=== PATIENT | male | born 1980 | race Asian ===

== ENCOUNTER 2021-07-23 10:25 | Emergency (ER) | payer BC, OTHER ==
[~2021-07-23] VITALS: Ht 175.3 cm; Wt 95.3 kg
[2021-07-23 10:48] VITALS: BP 122/74
[2021-07-23 10:53] VITALS: BP 122/74
--- NOTE | 2021-07-23 10:53 | NUR ---
c/o congested, AVILA, cough x 3 days, no sob, no cp, no n/v/d, pt in er tent 2
[2021-07-23] MEDS ORDERED: ALBU0.0912 IH (12:05)
[2021-07-23] MEDS ORDERED: ROB PO (12:05)
--- NOTE | 2021-07-23 12:21 | NUR ---
Patient discharged with v/s stable. Written and verbal after care instructions given and explained. Patient alert, oriented and verbalized understanding of instructions. Ambulatory with steady gait. All questions addressed prior to discharge. ID band removed. Patient advised to follow up with PMD. Rx of Albuterol and Robitussin given. Patient educated on indication of medication including possible reaction and side effects. Opportunity to ask questions provided and answered.
== END 2021-07-23 12:21 | disposition home or self-care (01) ==
LOC: EDBD 10:25 → MED 10:25
DX: U07.1 COVID-19 (principal); J06.9 Acute upper respiratory infection, unspecified; Z79.899 Other long term (current) drug therapy
CPT/HCPCS: 71045; 99284

== ENCOUNTER 2021-07-29 10:39 | Inpatient (IN) | payer OTHER, MEDICAID, SELFPAY ==
[~2021-07-29] VITALS: Ht 175.3 cm; Wt 95.3 kg
[~2021-07-29 10:39] MED LIST: ALBU0.0912 IH; ROB PO
[2021-07-29 11:23] VITALS: BP 122/76
--- NOTE | 2021-07-29 11:30 | NUR ---
PT TAKEN TO BED 3.
[2021-07-29] MEDS ORDERED: DEXAMETHASONE 10 MG/ML VIAL IVP ONE (11:55)
--- NOTE | 2021-07-29 12:05 | NUR ---
41/M presents to ED with c/o covid symptoms for one week. Patient states he was diagnosed with covid here on 07/23 and has continued to have worsening symptoms. Patient states he feels it is hard to take a full breath, states fatigue and reports 3 days of diarrhea. Denies chest pain, nausea, vomiting or urinary symptoms. Patient presents tachypneic and febrile with a temp of 103.0, O2 saturation 93% on 6L nasal canula. Patient states he has been eating and drinking normally at home but has had a difficult time sleeping. Dr. Earl aware of patient.
--- NOTE | 2021-07-29 12:20 | NUR ---
JAMAAL SWAB COLLECTED AND HANDED TO LIBRARY PAGE.
--- NOTE | 2021-07-29 12:20 | NUR ---
20G IV ESTABLISHED TO LEFT AC. LABS DRAWN AND HANDED TO MUCK MINER BLASTING.
[2021-07-29 12:41] LABS: BASOPHILS % (AUTO) 0.3 % (0.0-2.0); HEMOGLOBIN 14.8 g/dL (12.0-18.0); LYMPHOCYTES # (AUTO) 0.5 K/uL (2.0-11.5); MEAN CORPUSCULAR HEMOGLOBIN 33 pg (27-31); MEAN CORPUSCULAR HGB CONC 35 g/dL (33-37); MEAN CORPUSCULAR VOLUME 95.9 fL (80-94); MONOCYTES # (AUTO) 0.2 K/uL (0.8-1.0); MONOCYTES % (AUTO) 2.7 % (1.7-9.3); NEUTROPHILS # (AUTO) 8.4 K/uL (1.8-7.7); PLATELET COUNT (AUTO) 181 K/uL (140-450); RED BLOOD CELL COUNT(AUTO) 4.49 MIL/uL (4.20-6.10); RED CELL DISTRIBUTION WIDTH 14.2 % (11.6-13.7); WHITE BLOOD COUNT (AUTO) 9.2 K/uL (4.8-10.8)
[2021-07-29] MEDS ORDERED: ACETAMINOPHEN EXTRA STRENGTH 500 MG TAB PO ONE (13:30)
[2021-07-29] MEDS ORDERED: ACETAMINOPHEN EXTRA STRENGTH 500 MG TAB ONE (13:32)
[2021-07-29 13:44] LABS: LYMPHOCYTES % (AUTO) 5.6 % (20.5-51.1); NEUTROPHILS % (AUTO) 91.4 % (42.2-75.2)
[2021-07-29 13:46] LABS: ALBUMIN 2.9 g/dL (3.4-5.0); ANION GAP 16.5 (8-16); CARBON DIOXIDE 23.7 mmol/L (21-32); CREATININE 1.4 mg/dL (0.6-1.3); POTASSIUM 3.2 mmol/L (3.5-5.1); TOTAL BILIRUBIN 0.6 mg/dL (0.0-1.0)
[2021-07-29] MEDS ORDERED: cefTRIAXone 2,000 MG in DEXTROSE 5% 100 ML IV ONE (14:25)
[2021-07-29] MEDS ORDERED: cefTRIAXone 2,000 MG VIAL ONE (14:50)
--- NOTE | 2021-07-29 15:00 | NUR ---
PATIENT APPEARS TO BE RESTING WITH EYES OPEN, ON BEDSIDE INSTRUCTIONAL MATERIALS DIRECTOR. ALL NEEDS MET AT THIS TIME.
[2021-07-29] MEDS ORDERED: POTASSIUM CHLORIDE 10 MEQ TABER PO PRN (15:50)
[2021-07-29] MEDS ORDERED: ACETAMINOPHEN 325 MG TAB PO PRN (15:50)
[2021-07-29] MEDS ORDERED: MAGNESIUM OXIDE 400 MG TAB PO PRN (15:50)
[2021-07-29] MEDS ORDERED: ONDANSETRON 4 MG/2 ML VIAL IVP PRN (15:50)
[2021-07-29] MEDS ORDERED: HYDROcodone/APAP 5/325 MG 1 TAB TAB PO PRN (15:50)
[2021-07-29] MEDS ORDERED: MAG SULF 2000 MG/WATER PREMIX 50 ML IV PRN (15:50)
[2021-07-29] MEDS ORDERED: KCL 20 MEQ/WATER INJ PREMIX 200 ML IV PRN (15:50)
[2021-07-29] MEDS ORDERED: MORPHINE SULFATE 4 MG/ML SYR IVP PRN (15:50)
[2021-07-29] MEDS ORDERED: remdesivir COMMUNICATION ORDER 1 EA MISC MC PRN (15:55)
[2021-07-29] MEDS ORDERED: remdesivir CLINICAL MONITORING 1 EA MISC MC PRN (16:00)
[2021-07-29] MEDS ORDERED: AZITHROMYCIN 500 MG INJ VIAL IV ONE (16:31)
[2021-07-29] MEDS ORDERED: REMDESIVIR. 200 MG in NACL 0.9% 100 ML IV SCH (17:00)
--- NOTE | 2021-07-29 17:00 | NUR ---
PATIENT APPEARS TO BE RESTING WITH EYES OPEN, ON BEDSIDE PATIENT CARE ASSISTANT. ALL NEEDS MET AT THIS TIME.
[2021-07-29] MEDS: AZITHROMYCIN 500 MG in DEXTROSE 5% 250 ML IV SCH (17:27)
--- NOTE | 2021-07-29 18:20 | NUR ---
PATIENT PROVIDED WITH DINNER TRAY, ALL NEEDS MET AT THIS TIME.
--- NOTE | 2021-07-29 19:24 | NUR ---
Pt report given to Alyssa. Transfer of care at this time.
--- NOTE | 2021-07-29 20:25 | NUR ---
CALLED AND UPDATED PATIENTS CONDITION.
--- NOTE | 2021-07-29 21:00 | NUR ---
MEDICATED PER ADMITING ORDERS, TOLERATED WELL
--- NOTE | 2021-07-29 22:39 | NUR ---
Patient appears to be resting comfortably in bed. Vital Signs within normal limits. Respirations even and unlabored.
--- NOTE | 2021-07-29 23:58 | NUR ---
Patient appears to be resting comfortably in bed. Vital Signs within normal limits. Respirations even and unlabored.
--- NOTE | 2021-07-30 07:24 | NUR ---
report given to Anna GONZALEZ, for continuity of care
[2021-07-30 07:36] LABS: HEMATOCRIT 41.9 % (36-52); HEMOGLOBIN 14.4 g/dL (12.0-18.0); LYMPHOCYTES # (AUTO) 0.7 K/uL (2.0-11.5); LYMPHOCYTES % (AUTO) 7.8 % (20.5-51.1); MEAN CORPUSCULAR HEMOGLOBIN 33 pg (27-31); MEAN CORPUSCULAR HGB CONC 34 g/dL (33-37); MEAN CORPUSCULAR VOLUME 96.1 fL (80-94); MONOCYTES # (AUTO) 0.5 K/uL (0.8-1.0); MONOCYTES % (AUTO) 5.5 % (1.7-9.3); NEUTROPHILS # (AUTO) 7.7 K/uL (1.8-7.7); NEUTROPHILS % (AUTO) 86.7 % (42.2-75.2); PLATELET COUNT (AUTO) 214 K/uL (140-450); RED BLOOD CELL COUNT(AUTO) 4.36 MIL/uL (4.20-6.10); RED CELL DISTRIBUTION WIDTH 14.1 % (11.6-13.7); WHITE BLOOD COUNT (AUTO) 8.9 K/uL (4.8-10.8)
[2021-07-30 07:59] LABS: PROTHROMBIN TIME 9.9 secs (10.8-13.4)
[2021-07-30 08:13] LABS: ANION GAP 14.2 (8-16); CARBON DIOXIDE 25.2 mmol/L (21-32); POTASSIUM 3.4 mmol/L (3.5-5.1)
[2021-07-30 08:18] LABS: ALBUMIN 2.7 g/dL (3.4-5.0); TOTAL BILIRUBIN 0.6 mg/dL (0.0-1.0)
--- NOTE | 2021-07-30 08:26 | NUR ---
ASSISTED PT ONTO BEDPAN AT THIS TIME.
[2021-07-30] MEDS: DOCUSATE SODIUM 100 MG GELCAP PO SCH (09:00)
[2021-07-30] MEDS: DEXAMETHASONE 4 MG/ML VIAL IVP SCH (09:00)
--- NOTE | 2021-07-30 09:53 | NUR ---
PT WAS TAKEN OFF COMODE. GIVEN CALL LIGHT WITHIN REACH, PERICARE WAS DONE AT THIS TIME, NEW LINEN REPLACED, REATTACHED TO MONITOR.
--- NOTE | 2021-07-30 10:09 | NUR ---
PATIENT HAS BEEN SCREENED AND CATEGORIZED MODERATE NUTRITION RISK. PATIENT WILL BE SEEN WITHIN 3-5 DAYS OF ADMISSION. 07/31/21-08/02/[address]
--- NOTE | 2021-07-30 10:15 | NUR ---
PT HAD LOOSE STOOL, WILL HOLD DOCUSATE SODIUM AT THIS TIME.
--- NOTE | 2021-07-30 13:46 | NUR ---
NOVEL WAS SWABBED AND SENT TO LAB.
--- NOTE | 2021-07-30 14:30 | NUR ---
ORAL TEMPERATURE 98.0. PATIENT STATES HE IS FEELING SHORTNESS OF BREATH; TACHYPNEIC @ 35 SHALLOW/RAPID, SPO2 82% ON 5L VIA NC. PATIENT ASSISTED INTO PRONE POSITION IN SEMI-FOWLERS POSITION. PATIENT STATES HE FEELS LIKE HE CAN BREATH EASIER, SPO2 95% ON 5L VIA NC RR 39.
[2021-07-30] MEDS ORDERED: AZITHROMYCIN 500 MG INJ VIAL IV ONE (15:14)
[2021-07-30] MEDS ORDERED: cefTRIAXone 1,000 MG VIAL ONE (15:14)
[2021-07-30] MEDS: AZITHROMYCIN 500 MG in DEXTROSE 5% 250 ML IV SCH (15:50)
[2021-07-30] MEDS: REMDESIVIR. 100 MG in NACL 0.9% 100 ML IV SCH (16:00)
[2021-07-30] MEDS ORDERED: MAGNESIUM OXIDE 400 MG TAB PO PRN (17:20)
--- NOTE | 2021-07-30 23:10 | NUR ---
RECEIVED REPORT FROM DADA GONZALEZ FOR CONTINUITY OF CARE.
--- NOTE | 2021-07-31 00:30 | NUR ---
Patient appears to be resting comfortably in bed. Vital Signs within normal limits. Respirations even and unlabored.
--- NOTE | 2021-07-31 03:00 | NUR ---
OBSERVED SOME DESATURATION WHEN HE MOVES, ESPECIALLY WHEN HE TURNS TO HIS RIGHT SIDE, PATIENT IS COMFORTABLE
[2021-07-31 06:24] LABS: BASOPHILS % (AUTO) 0.2 % (0.0-2.0); HEMATOCRIT 39.8 % (36-52); HEMOGLOBIN 13.4 g/dL (12.0-18.0); LYMPHOCYTES # (AUTO) 0.9 K/uL (2.0-11.5); LYMPHOCYTES % (AUTO) 7.7 % (20.5-51.1); MEAN CORPUSCULAR HEMOGLOBIN 33 pg (27-31); MEAN CORPUSCULAR HGB CONC 34 g/dL (33-37); MEAN CORPUSCULAR VOLUME 96.3 fL (80-94); MONOCYTES # (AUTO) 0.5 K/uL (0.8-1.0); MONOCYTES % (AUTO) 4.6 % (1.7-9.3); NEUTROPHILS # (AUTO) 10.3 K/uL (1.8-7.7); NEUTROPHILS % (AUTO) 87.5 % (42.2-75.2); PLATELET COUNT (AUTO) 236 K/uL (140-450); RED BLOOD CELL COUNT(AUTO) 4.14 MIL/uL (4.20-6.10); RED CELL DISTRIBUTION WIDTH 13.8 % (11.6-13.7); WHITE BLOOD COUNT (AUTO) 11.7 K/uL (4.8-10.8)
--- NOTE | 2021-07-31 06:40 | NUR ---
STILL SLEEPING COMFORTABLE , NO RESPIRATORY DISTRESSED NOTED.
--- NOTE | 2021-07-31 07:13 | NUR ---
REPORT GIVEN TO DANIEL GONZALEZ , FOR CONTINUITY OF CARE
--- NOTE | 2021-07-31 07:14 | NUR ---
RECEIVED REPORT FROM LISA MATHUR. TRANSFER OF CARE AT THIS TIME.
--- NOTE | 2021-07-31 07:38 | NUR ---
PT RESTING, VISIBLE EQUAL RISE AND FALL OF CHEST, VSS, WILL CONTINUE TO MONITOR.
[2021-07-31 08:02] LABS: ALBUMIN 2.6 g/dL (3.4-5.0); ANION GAP 15.5 (8-16); CARBON DIOXIDE 24.5 mmol/L (21-32); MAGNESIUM 2.7 mg/dL (1.8-2.4); TOTAL BILIRUBIN 0.5 mg/dL (0.0-1.0)
--- NOTE | 2021-07-31 08:29 | NUR ---
SUDARSHAN [phone]
[2021-07-31] MEDS: DEXAMETHASONE 4 MG/ML VIAL IVP SCH (10:18)
[2021-07-31] MEDS: DOCUSATE SODIUM 100 MG GELCAP PO SCH (10:18)
[2021-07-31] MEDS: PANTOPRAZOLE 40 MG TABEC PO SCH (10:19)
--- NOTE | 2021-07-31 10:27 | NUR ---
SPOKE WITH PT SUDARSHAN, FOR PT UPDATES.
--- NOTE | 2021-07-31 10:41 | NUR ---
PROVIDED PT WITH URINAL AT BEDSIDE EMPTIED 250CC OF DARK YELLOW URINE NO SEDIMENT PRESENT, PT REPOSITIONED, HOB ELEVATED FOR COMFORT.
--- NOTE | 2021-07-31 12:49 | NUR ---
DR. GOMES IS EVALUATING PATIENT AT BEDSIDE.
--- NOTE | 2021-07-31 13:42 | NUR ---
PT SPO2 AT 3 L NC, 95%, WILL CONTINUE TO MONITOR.
--- NOTE | 2021-07-31 13:57 | NUR ---
PT SITTING UP, VISIBLE EQUAL RISE AND FALL OF CHEST, VSS, WILL CONTINUE TO MONITOR.
[2021-07-31] MEDS ORDERED: cefTRIAXone 1,000 MG VIAL ONE (15:01)
--- NOTE | 2021-07-31 16:37 | NUR ---
PT ASSISTED TO BEDSIDE COMODE, SOFT FORMED STOOL, PT SHEETS AND GOWN CHANGED, REPOSITIONED, VSS, WILL CONTINUE TO MONITOR.
[2021-07-31] MEDS ORDERED: AZITHROMYCIN 500 MG INJ VIAL IV ONE (16:39)
[2021-07-31] MEDS: AZITHROMYCIN 500 MG in DEXTROSE 5% 250 ML IV SCH (16:54)
--- NOTE | 2021-07-31 18:00 | NUR ---
PT REPOSOTIONED, BP 89/46 MD MADE AWARE REPEAT BP TO BE TAKEN IN 30MINUTES, OTHER VSS, WILL CONTINUE TO MONITOR.
[2021-07-31] MEDS: REMDESIVIR. 100 MG in NACL 0.9% 100 ML IV SCH (18:30)
--- NOTE | 2021-07-31 19:22 | NUR ---
REPORT RECEIVED FROM LISA SANCHEZ FOR CONTINUATION OF PATIENT CARE AT THIS TIME.
--- NOTE | 2021-07-31 19:22 | NUR ---
GAVE REPORT TO LISA DIAZ. TRANSFER OF CARE AT THIS.
--- NOTE | 2021-07-31 19:31 | NUR ---
PT REPOSITIONED, HOB LWERED, BP 93/53 ENDORSED TO JOE GONZALEZ TO CONTINUE TO MONITOR.
--- NOTE | 2021-07-31 20:06 | NUR ---
PATIENT LAYING IN BED LOCKED IN LOWEST POSITION W X2 SIDERAILS UP FOR PATIENT SAFETY. HOB SLIGHTLY ELEVATED, PATIENT LAYING IN SUPINE POSITION. PATIENT DENIES ANY PAIN OR SOB, PATIENT REPORTS DIZZYNESS WHEN GETTING UP OR UPON MOVEMENT. LUNG SOUNDS CLEAR TO AUSCULTATION. CONNECTED TO MONITOR W VSS. NAD NOTED, WILL CONTINUE TO MONITOR.
--- NOTE | 2021-07-31 20:06 | NUR ---
Note hollimaria e in ED - 07/31/21 at 2106 by MYNOR PATIENT LAYING IN BED LOCKED IN LOWEST POSITION W X2 SIDERAILS UP FOR PATIENT SAFETY. HOB SLIGHTLY ELEVATED, PATIENT LAYING IN SUPINE POSITION. PATIENT DENIES ANY PAIN OR SOB, PATIENT REPORTS DIZZYNESS WHEN GETTING UP OR UPON MOVEMENT. CONNECTED TO MONITOR W VSS. NAD NOTED, WILL CONTINUE TO MONITOR.
--- NOTE | 2021-07-31 20:20 | NUR ---
2 ATTEMPTS TO REACH LISA MALDONADO FOR TRANSFER OF CARE. NO ANSWER AT THIS TIME.
--- NOTE | 2021-07-31 20:49 | NUR ---
CALLED LISA MALDONADO TO GIVE REPORT FOR TANSFER OF PATIENT CARE. NO ANSWER BY LISA MALDONADO AT THIS TIME.
--- NOTE | 2021-07-31 21:30 | NUR ---
Patient will be admitted to care of DR. SAENZ. Admited to TELEMETRY. Will go to room 129-A. Belongings list completed. Report to LISA MALDONADO
[2021-07-31 21:50] VITALS: BP 115/69
--- NOTE | 2021-07-31 21:50 | NUR ---
Admitted from ED, with chief complaint of SOB, Diarrhea, FATIGUE, 41 y/o ,Male, Cooperative, oriented to call light, bed, phone,television, bathroom, smoking policy, visiting hours, procedures, ID bracelet on. Belongings list checked. VS WNL, resting quietly NAD noted.
--- NOTE | 2021-07-31 23:30 | NUR ---
Pt w/ c/o feeling cold. Comfort measures carried out- Warm blanket given. Warm tea, and apple sauce snack given. resp reg non-labored, on O2 4 L N/C, PO2 96-97%.
--- NOTE | 2021-08-01 01:00 | NUR ---
Admission assessment completed. Pt requested more warm tea, and apple sauce snack. Resp reg non-labored, on O2 4L N/C PO2 97- 98%.
--- NOTE | 2021-08-01 02:34 | NUR ---
APPROX 01:25 O2 CHECK PT SPO2 WAS 84% ON 4LNC AND WAS TITRATED AND SPO2 RACHEL TO 86% PT WAS AWAKEN APPROX 02:30 AND SPO2 83% AND NC WAS EXCHANGED FOR BUBBLE HFNC 7L PT SPO2 SLOWLY RACHEL TO 89/90% WILL CONTINUE TO MONITOR
[2021-08-01 04:30] VITALS: BP 115/69
--- NOTE | 2021-08-01 05:32 | NUR ---
PT RESTING COMFORTABLY IN SEMI-FOWLERS ON 7L
[2021-08-01 06:09] LABS: BASOPHILS % (AUTO) 0.3 % (0.0-2.0); HEMATOCRIT 41.6 % (36-52); HEMOGLOBIN 13.9 g/dL (12.0-18.0); LYMPHOCYTES % (AUTO) 8.7 % (20.5-51.1); MEAN CORPUSCULAR HEMOGLOBIN 33 pg (27-31); MEAN CORPUSCULAR HGB CONC 34 g/dL (33-37); MEAN CORPUSCULAR VOLUME 97.2 fL (80-94); MONOCYTES # (AUTO) 0.7 K/uL (0.8-1.0); MONOCYTES % (AUTO) 6.2 % (1.7-9.3); NEUTROPHILS # (AUTO) 9.9 K/uL (1.8-7.7); NEUTROPHILS % (AUTO) 84.8 % (42.2-75.2); PLATELET COUNT (AUTO) 289 K/uL (140-450); RED BLOOD CELL COUNT(AUTO) 4.28 MIL/uL (4.20-6.10); WHITE BLOOD COUNT (AUTO) 11.7 K/uL (4.8-10.8)
[2021-08-01 06:20] LABS: ALBUMIN 2.8 g/dL (3.4-5.0); ANION GAP 13.2 (8-16); CARBON DIOXIDE 28.8 mmol/L (21-32); MAGNESIUM 2.6 mg/dL (1.8-2.4)
[2021-08-01 06:35] LABS: PHOSPHORUS 3.7 mg/dL (2.5-4.9)
[2021-08-01 07:11] LABS: PROTHROMBIN TIME 9.9 secs (10.8-13.4)
--- NOTE | 2021-08-01 07:38 | NUR ---
PT SLEPT WELL MOST OF SHIFT, MAINTAINED ON A BRAT DIET, DIARRHEA X2 LAST NIGHT, BRAT DIET EFFECTIVE. ZOFRAN GIVEN TO AVOID N/V, AND ALLAY ANXIETY -WAS EFFECTIVE. PO2 W/ O2 4L N/C MAINTAINED AT 95% AND HIGHER. LAT VS RES REG NON-LABORED, PT STATED HE FELT BETTER, PO2 96%.
[2021-08-01 08:00] VITALS: BP 117/73
--- NOTE | 2021-08-01 08:04 | NUR ---
REPORT TO CHIDI GONZALEZ.
--- NOTE | 2021-08-01 08:04 | NUR ---
RECEIVED WINDOW SIDE REPORT FROM CLERICAL TRANSCRIBER NURSE. PATIENT SUPINE IN BED, AWAKE AND ALERT ABLE TO MAKE NEEDS KNOWN. BREATHING EVEN AND UNLABORED, NO SIGNS OF ACUTE DISTRESS NOTED ON 7L NC WITH EQUAL CHEST RISE AND FALL BILATERALLY. L WRIST 20G IV SL. BED IN LOW POSITION, CALL LIGHT WITHIN REACH, SAFETY MEASURES IN PLACE.
--- NOTE | 2021-08-01 08:30 | NUR ---
RECEIVED ON SUPPLEMENTAL OXYGEN AT 7 LPM VIA NASAL CANNULA/BUBBLE HUMIDIFIER PATIENT PRESENTING WITH INCREASED SOB AT +28 BPM DECK OFFICER TO MONITOR FOR DECREASED SATURATION AND PERSISTENT WOB PATIENT IS A CANDIDATE FOR VAPOTHERM HIGH FLOW NASAL CANNULA
[2021-08-01] MEDS: DOCUSATE SODIUM 100 MG GELCAP PO SCH (09:58)
[2021-08-01] MEDS: DEXAMETHASONE 4 MG/ML VIAL IVP SCH (09:58)
[2021-08-01] MEDS: PANTOPRAZOLE 40 MG TABEC PO SCH (09:59)
--- NOTE | 2021-08-01 10:00 | NUR ---
ADMINISTERED SCHEDULED MEDS PER MD ORDER, MED EDUCATION PROVIDED, PATIENT VERBALIZES UNDERSTANDING. PATIENT HELPED TO USE RESTROOM, ACTIVITY TOLERATED WELL NO SIGNS OF ACUTE DISTRESS NOTED. BREWERY REPRESENTATIVE IN PLACE, SAFETY MEASURES IN PLACE.
--- NOTE | 2021-08-01 11:05 | NUR ---
RECEIVED PHONE CALL FROM DONTE/RN THAT THE SATURATION DESCENDING TO 86% ON 7 LPM VIA NC PATIENT ATTENDANT INSTRUCTED RN TO INCREASE TO 10 LPM PATIENT ATTENDANT TO PLACE PATIENT ON (HIGH FLOW NASAL CANNULA (HFNC)
--- NOTE | 2021-08-01 11:10 | NUR ---
PLACED ON A VAPOTHERM HIGH FLOW NASAL CANNULA (HFNC) NOTED SPRAY GUN REPAIRER HELPER TO MONITOR DONTE/RN NOTIFIED
--- NOTE | 2021-08-01 11:54 | NUR ---
DC PLANNING: CM SPOKE WITH THE PATIENTS SUDARSHAN BY PHONE. THE PATIENT LIVES WITH HIS AND SON IN A TWO STORY HOUSE. 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 THE PATIENT HAS NOT BEEN SEEING A PCP REGULARLY, HIS IS NOT SURE WHO THE PATIENTS PCP IS. YONATHAN ENDORSED THAT THE PATIENT WILL NEED TO FOLLOW UP WITH AN MD WITHIN 7 DAYS OF DISCHARGE, SUDARSHAN STATES SHE WILL CALL [employer] TO SEE WHO HIS PCP IS. SHE ALSO DOES NOT HAVE HIS INSURANCE INFORMATION NOR DOES THE PATIENT, SHE WILL ALSO REQUEST NEW CARDS. THE PATIENT IS INDEPENDENT IN ALL ACTIVITIES. PER HIS THE PATIENT HAS [employer] WHICH WILL BE VERIFIED. YONATHAN ENDORSED THAT THE PATIENT MIGHT NEED HOME O2 AND THAT [employer] WILL BE CONTACTED FOR COVERAGE ONCE THEY'VE BEEN VERIFIED. THE PATIENTS WAS ALSO DIAGNOSED WITH COVID AND WILL BE GETTING A RAPID TEST TOMORROW TO RECHECK IT HAS BEEN 14 DAYS SINCE HER INITIAL DIAGNOSIS. DC PLAN IS TO HOME WITH HOME O2 NEEDED, YONATHAN WILL FOLLOW FOR NEEDS. Addendum: 08/02/21 at 1251 by Navya Sam CM DC PLANNING: YONATHAN SPOKE WITH YONATHAN CASILLAS FOR [facility] AND GAVE HIM UPDATED CLINICAL INFORMATION. VINNY WILL CALL BACK AFTER HIS ROUNDS WITH CONTACT INFORMATION FOR [facility] FOR HOME O2 AND WITH AN AUTH FOR THE O2. ENDORSED THAT PATIENT IS NOW ON VAPOTHERM AT 25 LITERS, WBC 14.9, PATIENT NOT STABLE FOR DC. YONATHAN WILL FOLLOW FOR NEEDS. Addendum: 08/03/21 at 1206 by Navya Sam CM DC PLANNING: ORDER RECEIVED FOR HOME O2, CALLED R[facility] TO REQUEST O2 SATS ON RA. ALSO SPOKE WITH JUDITH CASILLAS, ENDORSED THAT PATIENT WILL NEED HOME O2, VINNY WILL PROCESS THE REQUEST THROUGH [facility] ONCE HE RECEIVES DOCUMENTATION OF SATURATIONS ON RA AND ORDER FOR O2. YONATHAN WILL FOLLOW FOR NEEDS. Addendum: 08/03/21 at 1215 by Navya Sam DC PLANNING: YONATHAN SPOKE WITH THE PATIENT BY PHONE, CONFIRMED HIS ADDRESS AND HIS 'S PHONE NUMBER. CONFIRMED THAT HIS WILL BE HOME TODAY TO RECEIVE O2 AND ALSO THAT HE CANNOT DC UNTIL THE O2 IS DELIVERED. THE PATIENT STATES HE'S ALREADY SPOKEN WITH HIS AND THAT SHE IS PREPARED FOR THE DELIVERY. YONATHAN WILL UPDATE THE PATIENT ON ARRANGEMENTS, CM WILL FOLLOW FOR NEEDS. Addendum: 08/03/21 at 1636 by Navya Sam CM DC PLANNING: YONATHAN SPOKE WITH VINNY AT [facility] TO FOLLOW UP ON THE PATIENT HOME O2. VINNY ASKED THAT YONATHAN FAX INFORMATION TO [facility] AND GAVE THE NAME OF AN [employer] CONTACT TRACEE, . YONATHAN SPOKE WITH TRACEE WHO STATES SHE WILL LOOK FOR THE REFERRAL AND CALL CM. CM CALLED THE PATIENTS AND UPDATED HER. CM WILL FOLLOW FOR NEEDS. Addendum: 08/03/21 at 1647 by Navya Sam CM DC PLANNING: AUTH NUMBER PROVIDED FOR [facility] BY VINNY [id number], AUTH GIVEN TO [facility]. YONATHAN WILL FOLLOW NEEDED.
[2021-08-01 12:00] VITALS: BP 122/71
[2021-08-01] MEDS: NACL 0.9% 1,000 ML IV SCH ×2 (12:06→22:00)
--- NOTE | 2021-08-01 15:02 | NUR ---
08/01/21 RD INITIAL ASSESSMENT COMPLETED PLEASE REFER TO NUTRITION ASSESSMENT UNDER CARE ACTIVITY FOR ESTIMATED NUTRITIONAL NEEDS. 1. CONTINUE CARDIAC DIET TOLERATED 2. RD TO FOLLOW-UP 2-3 DAYS, HIGH RISK REVIEWED BY KENDELL OQUENDO RD
--- NOTE | 2021-08-01 15:16 | NUR ---
ADMINISTERED SCHEDULED ABX PER MD ORDER. MED EDUCATION PROVIDED, PATIENT VERBALIZES UNDERSTANDING. PATIENT AWAKE, ALERT, COOPERATIVE, ABLE TO MAKE NEEDS KNOWN. NO SIGNS OF ACUTE DISTRESS NOTED. SAFETY MEASURES IN PLACE.
--- NOTE | 2021-08-01 15:30 | NUR ---
DIET CONSULT NOTE: INITIAL ASSESSMENT COMPLETED TODAT, PER NURSING NOTES, PT ENJOYING APPLESAUSE AND PLAIN HOT TEA, DIETARY WILL PROVIDE AT ALL MEALS IN ADDITION TO CARDIAC DIET RD WILL FOLLOW UP WITH INTAKE AND DIET TOLERANCE WITHIN 2-[address]
[2021-08-01 16:00] VITALS: BP 121/74
[2021-08-01] MEDS: AZITHROMYCIN 500 MG in DEXTROSE 5% 250 ML IV SCH (16:32)
[2021-08-01] MEDS: REMDESIVIR. 100 MG in NACL 0.9% 100 ML IV SCH (16:59)
--- NOTE | 2021-08-01 19:20 | NUR ---
ENDORSED TO NIGHTSHIFT NURSE FOR CONTINUITY OF CARE. PATIENT STABLE AT THIS TIME.
--- NOTE | 2021-08-01 20:36 | NUR ---
PT SEEN AND ASSESSED. PT IS ON HIGH FLOW NASAL CANNULA 24L AND FiO2 60%. SPO2 92%. NO RESPIRATORY DISTRESS NOTED AT THIS TIME. TITRATED FLOW TO 30L AND FiO2 TO 50% SPO2 97%. WILL CONTINUE TO MONITOR PT.
[2021-08-01 21:00] VITALS: BP 129/93
--- NOTE | 2021-08-01 22:51 | NUR ---
pt w/ c/o right FA older IV site pain, 5/10 to touch. Tylenol 2 tabs PO given and a warm compress applied to R upper FA.
[2021-08-02 00:30] VITALS: BP 118/73
[2021-08-02 04:15] VITALS: BP 110/66
[2021-08-02 06:05] LABS: BASOPHILS # (AUTO) 0.1 K/uL (0.00-0.22); BASOPHILS % (AUTO) 0.9 % (0.0-2.0); EOSINOPHILS % (AUTO) 0.3 % (0.0-4.0); HEMATOCRIT 39.1 % (36-52); HEMOGLOBIN 13.3 g/dL (12.0-18.0); LYMPHOCYTES # (AUTO) 1.6 K/uL (2.0-11.5); LYMPHOCYTES % (AUTO) 10.5 % (20.5-51.1); MEAN CORPUSCULAR HEMOGLOBIN 33 pg (27-31); MEAN CORPUSCULAR HGB CONC 34 g/dL (33-37); MEAN CORPUSCULAR VOLUME 96.4 fL (80-94); MONOCYTES % (AUTO) 6.6 % (1.7-9.3); NEUTROPHILS # (AUTO) 12.2 K/uL (1.8-7.7); NEUTROPHILS % (AUTO) 81.7 % (42.2-75.2); PLATELET COUNT (AUTO) 315 K/uL (140-450); RED BLOOD CELL COUNT(AUTO) 4.06 MIL/uL (4.20-6.10); WHITE BLOOD COUNT (AUTO) 14.9 K/uL (4.8-10.8)
[2021-08-02 07:00] LABS: ALBUMIN 2.6 g/dL (3.4-5.0); ANION GAP 14.5 (8-16); CARBON DIOXIDE 24.5 mmol/L (21-32); CREATININE 0.9 mg/dL (0.6-1.3); MAGNESIUM 2.3 mg/dL (1.8-2.4); TOTAL BILIRUBIN 1.1 mg/dL (0.0-1.0)
[2021-08-02 07:03] LABS: LACTATE DEHYDROGENASE 527 U/L (85-227)
--- NOTE | 2021-08-02 07:30 | NUR ---
Report to AM RN. FREQUENT ROUNDS TO ASSESS PO2 LEVEL/ RESP STATUS THROUGHOUT SHIFT. PT SLEPT WELL MOST OF SHIFT, ZOFRAN GIVEN TO AVOID N/V, AND ALLAY ANXIETY -WAS EFFECTIVE. PT IS ON HIGH FLOW OXYGEN TO SPECIFIC SETTINGS. VIA N/C PO2 W/ MAINTAINED AT 90% AND HIGHER. LAST VS WNL, RES REG NON-LABORED, PT STATED HE FELT BETTER, PO2 94%, THIS AM.
[2021-08-02 08:00] VITALS: BP 121/77
[2021-08-02] MEDS: NACL 0.9% 1,000 ML IV SCH ×2 (08:00→17:29)
--- NOTE | 2021-08-02 08:30 | NUR ---
RECEIVED PATIENT CARE AND REPORT FROM [facility] NURSE. PATIENT ALERT AND ORIENTEDX4, SEMI-FOWLERS IN BED WITH NO VISIBLE S/S OF DISTRESS OR DISCOMFORT. PATIENT DOES NOT HAVE IV AT THIS TIME. PATIENT DENIES ANY PAIN OR SOB. ALL NEEDS HAVE BEEN MET AT THIS TIME.
[2021-08-02] MEDS: DOCUSATE SODIUM 100 MG GELCAP PO SCH (09:35)
[2021-08-02] MEDS: PANTOPRAZOLE 40 MG TABEC PO SCH (09:35)
--- NOTE | 2021-08-02 11:24 | NUR ---
IV LINE STARTED BY MICHELLE IN LEFT HAND 22GAUGE. BEGAN NS AT 100ML/HR ORDERED. 0900 DECADRON GIVEN ORDERED. SITE INTACT WITHOUT PAIN OR SWELLING.
[2021-08-02] MEDS: DEXAMETHASONE 4 MG/ML VIAL IVP SCH (11:28)
--- NOTE | 2021-08-02 11:36 | NUR ---
PATIENT STATED THAT IV SITE WAS HURTING. REDUCED NS IGOR FROM 100ML/HR TO 25ML/HR. WILL MONITOR PAIN. PATIENT STATES THAT PAIN IMPROVED WITH SLOWER RATE. WILL INCREASE RATE TO 100ML/HR TOLERATED.
[2021-08-02 12:00] VITALS: BP 120/72
--- NOTE | 2021-08-02 13:20 | NUR ---
TOOK PT OFF HFNC AND PLACED ON 8L BUBBLE HUMIDIFIER. SPO2 97%, PT STATES HE FEELS COMFORTABLE AND IS NOT HAVING SOB. WILL CONTINUE TO MONITOR THE PT.
[2021-08-02 16:00] VITALS: BP 108/64
[2021-08-02] MEDS: AZITHROMYCIN 500 MG in DEXTROSE 5% 250 ML IV SCH (16:04)
--- NOTE | 2021-08-02 16:04 | NUR ---
PATIENT TOLERATING FLUIDS AND IV MEDICATIONS WELL THROUGH LEFT HAND IV. REINFORCED IV LINE WITH TAPE. INCREASED NORMAL SALINE FLOW RATE TO 100ML/HR PER ORDER. WILL MONITOR PAIN AT IV SITE.
[2021-08-02] MEDS: REMDESIVIR. 100 MG in NACL 0.9% 100 ML IV SCH (16:30)
--- NOTE | 2021-08-02 17:28 | NUR ---
PATIENT STATED THAT IV FLUIDS WERE BEGINNING TO CAUSE PAIN AT IV SITE AGAIN. REDUCED NS FLOW TO 75ML/HR. PATIENT APPEARS TO BE TOLERATING RATE WELL.
--- NOTE | 2021-08-02 18:32 | NUR ---
PATIENT CONSUMED AN ADDITIONAL 500ML OF FLUIDS DURING DINNER TIME.
[2021-08-02 20:16] VITALS: BP 120/65
[2021-08-03 00:04] VITALS: BP 106/69
[2021-08-03] MEDS: NACL 0.9% 1,000 ML IV SCH ×2 (03:53→14:00)
[2021-08-03 03:58] VITALS: BP 115/66
[2021-08-03 05:36] LABS: BASOPHILS % (AUTO) 0.2 % (0.0-2.0); EOSINOPHILS # (AUTO) 0.1 K/uL (0-0.4); EOSINOPHILS % (AUTO) 0.6 % (0.0-4.0); HEMATOCRIT 40.8 % (36-52); HEMOGLOBIN 13.6 g/dL (12.0-18.0); LYMPHOCYTES # (AUTO) 1.5 K/uL (2.0-11.5); LYMPHOCYTES % (AUTO) 11.5 % (20.5-51.1); MEAN CORPUSCULAR HEMOGLOBIN 33 pg (27-31); MEAN CORPUSCULAR HGB CONC 33 g/dL (33-37); MEAN CORPUSCULAR VOLUME 97.5 fL (80-94); MONOCYTES # (AUTO) 0.9 K/uL (0.8-1.0); MONOCYTES % (AUTO) 7.1 % (1.7-9.3); NEUTROPHILS # (AUTO) 10.7 K/uL (1.8-7.7); NEUTROPHILS % (AUTO) 80.6 % (42.2-75.2); PLATELET COUNT (AUTO) 355 K/uL (140-450); RED BLOOD CELL COUNT(AUTO) 4.19 MIL/uL (4.20-6.10); RED CELL DISTRIBUTION WIDTH 13.7 % (11.6-13.7); WHITE BLOOD COUNT (AUTO) 13.2 K/uL (4.8-10.8)
[2021-08-03 06:38] LABS: ALBUMIN 2.5 g/dL (3.4-5.0); ANION GAP 11.3 (8-16); CARBON DIOXIDE 24.8 mmol/L (21-32); CREATININE 0.9 mg/dL (0.6-1.3); MAGNESIUM 2.4 mg/dL (1.8-2.4); POTASSIUM 4.1 mmol/L (3.5-5.1); TOTAL BILIRUBIN 0.7 mg/dL (0.0-1.0)
--- NOTE | 2021-08-03 07:08 | NUR ---
HANDOFF WITH LAURYN HUSSEIN RN. LANCE DUKES RN
[2021-08-03 08:00] VITALS: BP 120/71
[2021-08-03] MEDS: DOCUSATE SODIUM 100 MG GELCAP PO SCH (08:50)
[2021-08-03] MEDS: PANTOPRAZOLE 40 MG TABEC PO SCH (08:50)
[2021-08-03] MEDS: DEXAMETHASONE 4 MG/ML VIAL IVP SCH (08:50)
[2021-08-03 12:00] VITALS: BP 122/66
[2021-08-03] MEDS ORDERED: DEC4 PO (14:16)
[2021-08-03] MEDS ORDERED: APIX5TAB4 PO (14:16)
[2021-08-03 14:44] VITALS: BP 123/71
--- NOTE | 2021-08-03 15:35 | NUR ---
08/03/21 RD FOLLOW UP COMPLETED PLEASE REFER TO NUTRITION ASSESSMENT UNDER CARE ACTIVITY FOR ESTIMATED NUTRITIONAL NEEDS. 1. CONTINUE CARDIAC DIET TOLERATED 2. CONTINUE ENSURE BID 3. RD TO FOLLOW-UP 3-5 DAYS, MODERATE RISK LASHAY HAMM RD
--- NOTE | 2021-08-03 15:41 | NUR ---
PATIENT'S LEFT HAND IV DISLODGED AND CAUSING PAIN. SPOKE WITH DOCTOR AND STATED THAT LAST DOSE OF REMDESEVIR DOES NOT NEED TO BE GIVEN D/T PATIENT BEING DISCHARGED TODAY. IV REMOVED WITHOUT STARTING NEW IV LINE. SKIN INTACT, NO REDNESS, HEAT OR PAIN AT SITE AT THIS TIME.
[2021-08-03 16:00] VITALS: BP 129/73
[2021-08-03] MEDS: REMDESIVIR. 100 MG in NACL 0.9% 100 ML IV SCH (16:00)
--- NOTE | 2021-08-03 20:16 | NUR ---
PATIENT IDENTIFICATION BAND REMOVAL AND BELONGINGS SENT HOME WITH PATIENT AND SPOUSE. ORIGINAL PRESCRIPTION SENT FOR HOME PHARMACY TO FILL. PATIENT OXYGEN PRESENT FOR TRANSPORT HOME. LANCE DUKES RN
== END 2021-08-03 19:55 | disposition home or self-care (01) | DRG 871 ==
LOC: MED 10:39 → MTU 15:51 → MMU 07-31 04:39
PROVIDERS: ADMIT Hospitalist; ATTEND Hospitalist
PROC: XW033E5 Introduction of Remdesivir Anti-infective into Peripheral Vein, Percutaneous Approach, New Technology Group 5 (ICD-10-PCS; principal; 2021-07-29)
PROC: 5A0935A Assistance with Respiratory Ventilation, Less than 24 Consecutive Hours, High Flow/Velocity Cannula (ICD-10-PCS; 2021-08-01)
PROC: 5A0935A Assistance with Respiratory Ventilation, Less than 24 Consecutive Hours, High Flow/Velocity Cannula (ICD-10-PCS; 2021-08-02)
DX: A41.9 Sepsis, unspecified organism (principal); U07.1 COVID-19; J96.01 Acute respiratory failure with hypoxia; J12.82 Pneumonia due to coronavirus disease 2019; N17.0 Acute kidney failure with tubular necrosis; E87.1 Hypo-osmolality and hyponatremia; E44.0 Moderate protein-calorie malnutrition; R73.9 Hyperglycemia, unspecified; R74.01 Elevation of levels of liver transaminase levels; E87.6 Hypokalemia; Z79.899 Other long term (current) drug therapy; Z68.31 Body mass index [BMI] 31.0-31.9, adult
CPT/HCPCS: 36415; 71045; 80053; 82550; 82553; 83036; 83605; 83615; 83735; 83880; 84100; 84484; 85025; 85379; 85610; 85651; 86140; 93005; 96365; 96375; 99291; J0456; J0696; J1100; J1644; J2405; J7060; U0003